=== PATIENT | female | born 1990 | race Caucasian/White ===

== ENCOUNTER 2017-03-05 16:21 | Emergency (ER) | payer OTHER ==
[~2017-03-05] VITALS: Ht 162.6 cm; Wt 65.6 kg
[2017-03-05 17:30] LABS: ADD MIUA? NO; BILIRUBIN NEGATIVE; BLOOD NEGATIVE; COLOR YELLOW ((YELLOW)); GLUCOSE (STRIP) NEGATIVE; KETONES NEGATIVE; LEUKOCYTES NEGATIVE; NITRITE NEGATIVE; PROTEIN (STRIP) NEGATIVE; SPECIFIC GRAVITY 1.014 (1.000-1.030); UCUL ADDED? NO; UROBILINOGEN 0.2 MG/DL (0.2-1.0)
[2017-03-05 17:51] LABS: INTERNAL CONTROL VALID? YES
[2017-03-05] MEDS ORDERED: DIFLUCAN150 MG PO (18:58)
[2017-03-05 19:07] VITALS: BP 122/88
== END 2017-03-05 19:08 | disposition home or self-care (01) ==
LOC: EME 16:21
PROVIDERS: Nurse Practitioner Family
DX: B37.3 Candidiasis of vulva and vagina (principal)
CPT/HCPCS: 81003; 84703; 87210; 99281; 99284